=== PATIENT | male | born 1990 | race Hispanic/Latino ===

== ENCOUNTER 2018-02-24 15:04 | Emergency (ER) | payer BC ==
--- NOTE | 2018-02-24 16:53 | RAD REPORT ---
EXAM DESCRIPTION: RAD - Knee Left 3 View - 02/24/2018 4:40 pm CLINICAL HISTORY: Left knee pain FINDINGS: No fracture or dislocation is seen. Postsurgical changes are noted. No significant bone or joint abnormality seen
[2018-02-24] MEDS ORDERED: IBUPROFEN 400 MG TAB ONE (16:54)
--- NOTE | 2018-02-24 17:02 | EDPHYS ---
Physician Documentation [facility] Name: Neo Yang Age: 27 yrs Sex: Male : 1990 Arrival Date: 02/24/2018 Time: 15:07 Bed 17 Private MD: None, None ED Physician Killian Karimi HPI: 02/24 16:43 This 27 yrs old Male presents to ER via Wheelchair with complaints of Knee kb Pain. 16:43 The patient presents with decreased range of motion, an injury, pain. The complaints kb affect the left knee. Context: The problem was sustained at work, resulted from twisting of the extremity, the patient is not able to bear weight, the patient is not able to ambulate, Problem is a result from a previous injury: Yes. Onset: The symptoms/episode began/occurred today. Modifying factors: The symptoms are alleviated by nothing. the symptoms are aggravated by weight bearing. Associated signs and symptoms: The patient has no apparent associated signs or symptoms. Treatment prior to arrival includes: no previous treatment. Severity of symptoms: At their worst the symptoms were moderate, in the emergency department the symptoms are unchanged. The patient has experienced a previous episode. The patient has not recently seen a physician. Pt states he injured his left knee 3 weeks ago, went to PCP and was told he needed a MRI, but they didn't schedule it. Talked to them again today after twisting knee at work and they scheduled MRI for . States he cannot straighten leg completely due to pain and cannot bear weight so he can't wait until . Historical: - Allergies: 15:19 No Known Allergies; rk2 - Immunization history:: Last tetanus immunization: Pneumococcal vaccine is not up to date, Flu vaccine is not up to date. - Social history:: Smoking status: Patient/guardian denies using tobacco, never smoked. ROS: 16:41 Constitutional: Negative for fever, chills, and weight loss, Cardiovascular: Negative kb for chest pain, palpitations, and edema, Respiratory: Negative for shortness of breath, cough, wheezing, and pleuritic chest pain, Abdomen/GI: Negative for abdominal pain, nausea, vomiting, diarrhea, and constipation, Back: Negative for injury and pain, Skin: Negative for injury, rash, and discoloration, Neuro: Negative for headache, weakness, numbness, tingling, and seizure. 16:41 MS/extremity: Positive for injury or acute deformity, decreased range of motion, pain, of the left knee. Exam: 16:41 Constitutional: This is a well developed, well nourished patient who is awake, alert, kb and in no acute distress. Head/Face: Normocephalic, atraumatic. Chest/axilla: Normal chest wall appearance and motion. Nontender with no deformity. No lesions are appreciated. Cardiovascular: Regular rate and rhythm with a normal S1 and S2. No gallops, murmurs, or rubs. Normal PMI, no JVD. No pulse deficits. Respiratory: Lungs have equal breath sounds bilaterally, clear to auscultation and percussion. No rales, rhonchi or wheezes noted. No increased work of breathing, no retractions or nasal flaring. Abdomen/GI: Soft, non-tender, with normal bowel sounds. No distension or tympany. No guarding or rebound. No evidence of tenderness throughout. Skin: Warm, dry with normal turgor. Normal color with no rashes, no lesions, and no evidence of cellulitis. Neuro: Awake and alert, GCS 15, oriented to person, place, time, and situation. Cranial nerves II-XII grossly intact. Motor strength 5/5 in all extremities. Sensory grossly intact. Cerebellar exam normal. Normal gait. 16:41 Musculoskeletal/extremity: Extremities: grossly normal except: noted in the left knee: decreased ROM, pain, ROM: limited active range of motion due to pain, in the left knee, Circulation is intact in all extremities. Sensation intact. Weight bearing: is unable to bear weight. Vital Signs: 15:19 BP 125 / 87; Pulse 79; Resp 17; Temp 98.9; Pulse Ox 99% on R/A; rk2 MDM: 16:25 Patient medically screened. [facility] 16:42 Data reviewed: vital signs, nurses notes. Data interpreted: Pulse oximetry: on room air kb is 99 %. Interpretation: normal. 17:01 Counseling: I had a detailed discussion with the patient and/or guardian regarding: the kb historical points, exam findings, and any diagnostic results supporting the discharge/admit diagnosis, radiology results, the need for outpatient follow up, a orthopedic surgeon, to return to the emergency department if symptoms worsen or persist or if there are any questions or concerns that arise at home. 02/24 16:02 Order name: Knee Left 3 View XRAY; Complete Time: 17:00 kb Administered Medications: 16:57 Not Given (Patient Refused): Ibuprofen 800 mg PO once Disposition: 02/25 07:50 Co-signature as Attending Physician, Killian Karimi MD I agree with the assessment and oriana plan of care. Disposition: 02/24/18 17:01 Discharged to Home. Impression: Pain in left knee. - Condition is Stable. - Discharge Instructions: Knee Pain, [id number]. - Medication Reconciliation Form, Thank You Letter, Antibiotic Education, Prescription Opioid Use form. - Follow up: Emergency Department; When: As needed; Reason: Worsening of condition. Follow up: Private Physician; When: 2 - 3 days; Reason: Recheck today's complaints, Continuance of care, Re-evaluation by your physician. Signatures: Dispatcher [employer] EDGuadalupe Mallory, HEALTH SCIENCES DEPARTMENT CHAIR-C HE[employer] SCIENCES DEPARTMENT CHAIR-Sumanth Chung RN RN sg Anderson, Corey, MD MD cha Williams, Irene, RN RN Rupa Bill RN RN rk2 Corrections: (The following items were deleted from the chart) 02/24 17:05 16:59 Knee Immobilizer ordered. [facility] 17:05 16:59 Crutches ordered. [facility]
--- NOTE | 2018-02-24 17:02 | ER ---
Nurse's Notes [facility] Name: Neo Yang Age: 27 yrs Sex: Male : 1990 Arrival Date: 02/24/2018 Time: 15:07 Bed 17 Private MD: None, None Diagnosis: Pain in left knee Presentation: 02/24 15:17 Presenting complaint: Patient states: Pt. c/o left knee pain, injury onset 2-3 weeks rk2 ago, is to have MRI; however, today knee pain increased and unable to bear weight or fully extend leg. Transition of care: patient was not received from another setting of care. Onset of symptoms was February 24, 2018. Initial Sepsis Screen: Does the patient meet any 2 criteria? No. Patient's initial sepsis screen is negative. Does the patient have a suspected source of infection? No. Patient's initial sepsis screen is negative. Care prior to arrival: None. 15:17 Method Of Arrival: Wheelchair rk2 15:17 Acuity: HEIKE 4 rk2 Triage Assessment: 17:10 General: Appears in no apparent distress. Behavior is calm, cooperative. iw Historical: - Allergies: 15:19 No Known Allergies; rk2 - Immunization history:: Last tetanus immunization: Pneumococcal vaccine is not up to date, Flu vaccine is not up to date. - Social history:: Smoking status: Patient/guardian denies using tobacco, never smoked. Screenin:27 Abuse screen: Denies threats or abuse. Nutritional screening: No deficits noted. em Tuberculosis screening: No symptoms or risk factors identified. Fall Risk None identified. Assessment: 16:00 General: Appears in no apparent distress. comfortable, Behavior is calm, cooperative. iw Pain: Complains of pain in left knee. Neuro: Level of Consciousness is awake, alert, obeys commands, Oriented to person, place, time, situation, Moves all extremities. Full function. Cardiovascular: Patient's skin is warm and dry. Respiratory: Respiratory effort is even, unlabored, Respiratory pattern is regular, symmetrical. GI: No signs and/or symptoms were reported involving the gastrointestinal system. Derm: Skin is pink, warm \\T\\ dry. normal. Musculoskeletal: Range of motion: limited in left knee. 16:57 Reassessment: pt refused the motrin, pt reports " im going to wait, im driving home." sg pt education provided, pt continues to refuse the motrin at this time, Damaso BI[employer] CUTTER HELPER notified, orders received to apply knee immobilizer and crutches, pt noted to be standing at bedside using counter for support, will continue to monitor. 17:09 Reassessment: Patient appears in no apparent distress at this time. Patient and/or iw family updated on plan of care and expected duration. Pain level reassessed. Patient is alert, oriented x 3, equal unlabored respirations, skin warm/dry/pink. Pain: Complains of pain in left knee. Vital Signs: 15:19 BP 125 / 87; Pulse 79; Resp 17; Temp 98.9; Pulse Ox 99% on R/A; rk2 ED Course: 15:07 Patient arrived in ED. mr 15:08 None, None is Private Physician. mr 15:19 Triage completed. rk2 15:19 Arm band placed on left wrist. rk2 16:22 Guadalupe Matamoros FNP-C [facility]. kb 16:22 Killian Karimi MD is Attending Physician. kb 16:25 Meño Keys LVN is Primary Nurse. em 16:27 Patient has correct armband on for positive identification. Bed in low position. Call em light in reach. Side rails up X2. 16:27 No provider procedures requiring assistance completed. em 16:40 Knee Left 3 View XRAY In Process Unspecified. EDMS 17:10 Patient did not have IV access during this emergency room visit. iw Administered Medications: 16:57 Not Given (Patient Refused): Ibuprofen 800 mg PO once sg Outcome: 17:01 Discharge ordered by . kb 17:09 Discharged to home via wheelchair, with family. iw 17:09 Condition: good 17:09 Discharge instructions given to patient, family, Instructed on discharge instructions, follow up and referral plans. Demonstrated understanding of instructions, follow-up care. 17:10 Patient left the ED. iw Signatures: Dispatcher [employer] EDMS Guadalupe Matamoros FNP-C FNP-Ckb Gay, Steven, RN RN Amberly Madera mr Meño Keys LVN LVN em Eda Aguilar RN RN Rupa Bill RN RN rk2
== END 2018-02-24 17:10 | disposition home or self-care (01) ==
LOC: ER 15:04
DX: M25.562 Pain in left knee (principal)
CPT/HCPCS: 99283